=== PATIENT | female | born 1940 | race Caucasian/White ===

== ENCOUNTER → 2019-01-25 | Outpatient (CLI) | payer MEDICARE, OTHER | END | disposition home or self-care (01) | LOC: HKI 11:58 | DX: M25.561 Pain in right knee (principal) | CPT/HCPCS: 20610; 73564 ==

== ENCOUNTER → 2019-02-21 | Outpatient (CLI) | payer MEDICARE, OTHER | END | disposition home or self-care (01) | LOC: HKI 11:21 | DX: M76.31 Iliotibial band syndrome, right leg (principal) | CPT/HCPCS: G0463 ==